=== PATIENT | female | born 1960 | race Caucasian/White ===

== ENCOUNTER 2023-07-10 08:38 | Outpatient (OUT) | payer OTHER, SELFPAY ==
--- NOTE | 2023-07-10 | US_ITS ---
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 TECHNIQUE: Sonographic images of the thyroid gland were obtained. FINDINGS: The right thyroid lobe measures 3.5 1.4 x 1.6 cm. Single 6 mm area of hyperechogenicity with acoustic shadowing likely representing a calcified nodule The thyroid isthmus measures 3 mm. Homogeneous. No focal nodule. The left thyroid lobe measures 2.4 x 1.0 x 1.3 cm. Single nodule Nodule 1:0.4 x 0.3 x 0.2 cm. Solid, hypoechoic, wide, smooth margins, no calcifications. TR 4 US/US thyroid IMPRESSION: Subcentimeter thyroid nodules. No follow-up required TI-RADS: The [employer] TI-RADS committee's white paper recommendations for thyroid lesions classified as TR4 (moderately suspicious) are listed below: > 1.0 cm. Follow-up ultrasound in 1, 2, 3, and 5 years. > 1.5 cm. FNA. J. Am Pratibha Radiol 2017;14:587-595. Electronically authenticated by: JED NELSON Date: 07/12/2023 07:29
== END 2023-07-10 08:39 | disposition home or self-care (01) ==
LOC: US 08:38
PROVIDERS: PCP Family Medicine; Visit Provider Family Medicine
DX: E04.2 Nontoxic multinodular goiter (principal)
CPT/HCPCS: 76536